=== PATIENT | female | born 1965 | race Caucasian/White ===

== ENCOUNTER 2023-12-27 12:04 | Emergency (ER) | payer OTHER ==
[2023-12-27] MEDS ORDERED: Naloxone 0.4 MG/ML SDV IVPUSH PRN (12:42)
[2023-12-27] MEDS: HYDROmorphone 0.5 MG/0.5 ML Syringe IVPUSH ONE (12:48)
[2023-12-27 12:51] LABS: BASOPHILS ABSOLUTE AUTO 0.03 K/uL (0.00-0.10); BASOPHILS PERCENT AUTO 0.5 % (0.1-1.3); EOSINOPHILS ABSOLUTE AUTO 0.07 K/uL (0.00-0.40); EOSINOPHILS PERCENT AUTO 1.1 % (0.0-5.4); HEMATOCRIT 41.4 % (34.3-46.0); HEMOGLOBIN 14.1 g/dL (11.2-15.5); IMMATURE GRAN ABSOLUTE AUTO 0.02 K/uL (0.00-0.23); IMMATURE GRAN PERCENT AUTO 0.3 % (0.0-0.7); MEAN CORPUSCULAR HEMOGLOBIN 31.1 pg (31.6-35.5); MEAN CORPUSCULAR HGB CONC 34.1 g/dL (31.6-35.5); MEAN CORPUSCULAR VOLUME 91.4 fL (81.4-99.0); MONOCYTES ABSOLUTE AUTO 0.36 K/uL (0.20-0.90); MONOCYTES PERCENT AUTO 5.8 % (3.3-12.6); NEUTROPHILS ABSOLUTE AUTO 4.26 K/uL (1.0-7.6); NEUTROPHILS PERCENT AUTO 68.3 % (40.0-78.1); PLATELET COUNT,PLT 220 K/uL (130-375); RED BLOOD CELL COUNT 4.53 M/uL (3.77-5.24); WHITE BLOOD CELL COUNT,WBC 6.2 K/uL (3.2-11.0)
[2023-12-27] MEDS: Prochlorperazine 10 MG/2 ML SDV IVPUSH ONE (12:52)
[2023-12-27] MEDS: Sodium Chloride 0.9% 1,000 ML IV ONE (12:59)
[2023-12-27 13:10] LABS: A/G RATIO 1.3 (1.2-2.2); ALANINE AMINOTRANSFERASE,ALT 34 U/L (12-78); ALBUMIN 3.8 g/dL (3.4-5.0); ALKALINE PHOSPHATASE 81 U/L (46-116); ANION GAP 7.7 mmol/L (5.0-14.0); ASPARTATE AMNIOTRANSFERASE,AST 21 U/L (15-37); BILIRUBIN TOTAL 0.4 mg/dL (0.2-1.0); BLOOD UREA NITROGEN,BUN 17 mg/dL (7-18); CALCIUM 9.2 mg/dL (8.5-10.1); CARBON DIOXIDE,CO2 29 mmol/L (21-32); CHLORIDE,CL 105 mmol/L (100-108); CREATININE 0.8 mg/dL (0.6-1.0); EST CRCL DRUG DOSING (CG) 71.35 mL/min; ESTIMATED GFR 85 mL/min (>60); GLUCOSE RANDOM 142 mg/dL (74-106); POTASSIUM,K 3.6 mmol/L (3.6-5.2); PROTEIN TOTAL,TP 6.8 g/dL (6.4-8.2); SODIUM,NA 142 mmol/L (140-148)
[2023-12-27] MEDS: Ketorolac 30 MG/ML SDV IVPUSH ONE (13:40)
== END 2023-12-27 16:00 | disposition home or self-care (01) ==
LOC: JP.ED 12:04
DX: S42.252A Displaced fracture of greater tuberosity of left humerus, initial encounter for closed fracture (principal); Z79.899 Other long term (current) drug therapy; W01.0XXA Fall on same level from slipping, tripping and stumbling without subsequent striking against object, initial encounter
CPT/HCPCS: 36415; 73200; 76377; 80053; 80307; 85025; 96374; 96375; 99284; J0780; J1885; J7030; J1171